=== PATIENT | female | born 1990 | race Caucasian/White ===

== ENCOUNTER 2018-06-13 20:26 | Emergency (ER) | payer BC, SELFPAY ==
[2018-06-13 20:33] VITALS: BP 106/72; PULSE 62; RESP 20; TEMP 36.9; O2SAT 100; BMI 21.6
--- NOTE | 2018-06-13 20:50 | ED_ITS ---
HPI - URI/Sore Throat <QUINN Mccullough - Last Filed: 06/13/18 22:22> General Chief Complaint: Upper Respiratory Symptoms Stated Complaint: chest pain and SOB x3 days, sore throat Time Seen by Provider: 06/13/18 20:39 Source: patient Mode of arrival: ambulatory Limitations: no limitations History of Present Illness HPI Narrative: 27-year-old healthy female that is a nonsmoker here for complaint of having chest pain to the anterior chest area for the last 3 days. She also reports that she has had a cough over the past 3 days as well. She denies any trauma to the chest wall. No nausea or vomiting. She denies any fevers. She denies any stressors or relievers of her pain. She is ambulatory into the emergency room. She has no nausea or vomiting. She denies any other concerns or complaints at this time MD Complaint: cough Related Data Home Medications Medication Instructions Recorded Confirmed VIT 15/IRON CB/FA/DSS 1 PO Q DAY #0 07/18/16 (MYNATAL ADVANCE TABLET) acetaminophen 650 PO PRN PRN #0 07/18/16 Previous Rx's Medication Instructions Recorded ibuprofen 600 mg PO Q6HP PRN #30 tab 12/11/16 oxycodone-acetaminophen 0 tab PO Q4HP PRN #20 02/09/17 Allergies Allergy/AdvReac Type Severity Reaction Status Date / Time No Known Drug Allergies Allergy Verified 06/13/18 20:37 Review of Systems <QUINN Mccullough - Last Filed: 06/13/18 22:22> Constitutional Denies chills, Denies fatigue, Denies fever(s), Denies lethargy and Denies weakness Eyes Denies change in vision, Denies eye discharge, Denies irritation and Denies loss of vision ENT Ears, Nose, Mouth, and Throat: Denies change in voice, Denies neck pain, Denies sore throat and Denies throat swelling Cardiovascular Reports chest pain Respiratory Reports cough and Denies wheezing Gastrointestinal Gastrointestinal: Denies abdominal pain, Denies change in bowel habits, Denies diarrhea, Denies nausea and Denies vomiting Genitourinary Denies hematuria, Denies flank pain, Denies urinary incontinence and Denies urinary urgency Musculoskeletal Denies neck pain Integumentary/Breasts Denies pruritus, Denies erythema, Denies rash and Denies wounds Neurologic Denies confusion, Denies loss of vision and Denies weakness Psychiatric Denies anxiety, Denies confusion, Denies depression, Denies homicidal ideation and Denies suicidal ideation Endocrine Denies fatigue and Denies flushing Hematologic/Lymphatic Denies easy bruising Allergic/Immunologic Denies urticaria, Denies throat swelling and Denies wheezing Exam <QUINN Mccullough - Last Filed: 06/13/18 22:22> Initial Vital Signs Initial Vital Signs: Vital Signs Temperature 98.5 F 06/13/18 20:33 Pulse Rate 62 06/13/18 20:33 Respiratory Rate 20 06/13/18 20:33 Blood Pressure 106/72 06/13/18 20:33 Pulse Oximetry 100 06/13/18 20:33 Const General: cooperative and well developed Nutritional Appearance: well nourished Orientation: alert, awake, oriented x3 and not confused HENMT Mouth: oral mucosae normal and moist mucous membranes Eyes Conjunctivae: conjunctivae normal Sclera: sclerae normal Pupils: PERRL EOM: EOM intact bilaterally Chest Chest: normal inspection of the chest Other: Tenderness on palpation anterior chest Resp Effort & Inspection: normal respiratory effort, able to speak in complete sentences, no respiratory distress and no use of accessory muscles Auscultation: clear to auscultation bilaterally, no rales, no rhonchi and no wheezes Cardio Rate: regular rate Rhythm: regular rhythm Heart Sounds: no click, no gallops, no murmurs and no rubs Pulses: normal peripheral pulses GI Inspection: non-distended Palpation: soft, no hepatosplenomegaly, No guarding, No pulsatile mass and No tender Auscultation: normal bowel sounds Skin General: no rashes or lesions noted, No jaundice and No petechiae Neuro General: alert, oriented x3, gait normal and no focal motor deficits Speech: speech normal <Chito Brito MD - Last Filed: 06/14/18 00:40> Initial Vital Signs Initial Vital Signs: Vital Signs Temperature 98.5 F 06/13/18 20:33 Pulse Rate 62 06/13/18 20:33 Respiratory Rate 20 06/13/18 20:33 Blood Pressure 106/72 06/13/18 20:33 Pulse Oximetry 100 06/13/18 20:33 Course <QUINN Mccullough - Last Filed: 06/13/18 22:22> Orders Ordered: ED Orders 06/13/18 20:40 EKG-12 Lead Stat 06/13/18 20:55 XR chest 1V Stat 06/13/18 21:15 Complete Blood Count AUTO DIFF Stat Comprehensive Metabolic Panel Stat D Dimer Stat Lipase Stat Troponin & CK Cardiac Panel Stat Discontinued Medications Sodium Chloride (Normal Saline 0.9%) 1,000 mls @ 1,000 mls/hr IV BOLUS ONE Stop: 06/13/18 21:54 Last Admin: 06/13/18 21:18 Dose: 1,000 mls/hr Vital Signs - 8 hr 06/13/18 20:33 06/13/18 22:00 06/13/18 22:36 Temperature 98.5 F Pulse Rate 62 72 59 L Respiratory Rate 20 18 17 Blood Pressure 106/72 107/74 Blood Pressure [Right Arm] 114/74 Pulse Oximetry 100 98 97 <Chito Brito MD - Last Filed: 06/14/18 00:40> Orders Ordered: ED Orders 06/13/18 20:40 EKG-12 Lead Stat 06/13/18 20:55 XR chest 1V Stat 06/13/18 21:15 Complete Blood Count AUTO DIFF Stat Comprehensive Metabolic Panel Stat D Dimer Stat Lipase Stat Troponin & CK Cardiac Panel Stat Discontinued Medications Sodium Chloride (Normal Saline 0.9%) 1,000 mls @ 1,000 mls/hr IV BOLUS ONE Stop: 06/13/18 21:54 Last Admin: 06/13/18 21:18 Dose: 1,000 mls/hr Vital Signs - 8 hr 06/13/18 20:33 06/13/18 22:00 06/13/18 22:36 Temperature 98.5 F Pulse Rate 62 72 59 L Respiratory Rate 20 18 17 Blood Pressure 106/72 107/74 Blood Pressure [Right Arm] 114/74 Pulse Oximetry 100 98 97 MDM - URI/Sore Throat <QUINN Mccullough - Last Filed: 06/13/18 22:22> Lab Data Result diagrams: 06/13/18 21:15 06/13/18 21:15 Lab Results 06/13/18 06/13/18 06/13/18 Range/Units 21:15 21:15 21:15 WBC 6.9 (4.5-11.0) X10^3/uL RBC 4.30 (4.0-5.2) X10^6/uL Hgb 13.5 (12.0-16.0) g/dL Hct 39.3 (36-46) % MCV 91.6 (80-100) fL MCH 31.5 (26-34) PG MCHC 34.4 (30-36) % RDW 12.7 (11.6-14.8) % Plt Count 221 (150-400) X10^3/uL Neut % (Auto) 68.1 (50-75) % Lymph % (Auto) 20.2 L (25-40) % [place] % (Auto) 9.1 (3-14) % Eos % (Auto) 1.8 L (2-4) % Baso % (Auto) 0.8 (0-2) % Neut # (Auto) 4700 (7852-4745) /uL D-Dimer 357 H (<230) ng/mL Sodium 144 (137-145) mmol/L Potassium 3.5 (3.4-5.1) mmol/L Chloride 103 (98-107) mmol/L Carbon Dioxide 25 (22-32) mmol/L BUN 13 (7-17) mg/dL Creatinine 0.70 (0.52-1.04) mg/dL Estimated GFR > 60.0 (>60) mL/min BUN/Creatinine Ratio 18.6 (6-22) Glucose 85 (70-100) mg/dL Calcium 9.0 (8.4-10.2) mg/dL Total Bilirubin 0.3 (0.2-1.3) mg/dL AST 36 (14-36) IU/L ALT 24 (9-52) IU/L Alkaline Phosphatase 39 (38-126) U/L Total Creatine Kinase 1388 H (30-135) U/L CK-MB (CK-2) 22.80 H (<2.37) ng/mL CK-MB (CK-2) Rel Index 1.6 (1.5-5.0) % Troponin I < 0.012 (0.01-0.034) ng/mL Total Protein 7.5 (6.3-8.2) g/dL Albumin 4.4 (3.5-5.0) g/dL Globulin 3.1 (1.7-4.1) g/dL Albumin/Globulin Ratio 1.4 (1.0-2.8) Lipase 80 (23-300) U/L Point of Care Testing Test Results Negative Rapid Strep A Negative Urine Dip Bedside Urine Glucose Negative Bedside Urine Bilirubin - Negative Bedside Urine Ketone - Negative Urine Specific [place] 1.015 Bedside Urine Occult Blood - Negative Bedside Urine pH 7.5 Bedside Urine Protein - Negative Bedside Urine Urobilinogen - Negative Bedside Urine Nitrite - Negative Bedside Urine Leukocytes - Negative Esterase Imaging Data Chest x-ray: Radiologist's impression: [address] [id number] XRay Report Signed Patient: Danya Clay FMR#: [id number] : 1990Acct:[id number] Age/Sex: 27 / FDate of Service: 06/13/18 Loc: ED Accession Number: [id number] Procedure: XR chest 1V Ordering Provider: Anival Osborn PROCEDURE: XR CHEST 1V INDICATIONS: Chest pain last 3 days TECHNIQUE: One view of the chest was acquired. COMPARISON: None. FINDINGS: Surgical changes and devices: None. Lungs and pleura: No pleural effusions or pneumothorax. There is mild pulmonary vascular congestion. No definite focal infiltrate. Mediastinum: Mediastinal contours appear normal. Heart size is enlarged. Bones and chest wall: No suspicious bony lesions. Overlying soft tissues appear unremarkable. IMPRESSION: Mild congestion. No focal infiltrate, pleural effusion or pneumothorax. Dictated by: Kyree Child M.D. on 06/13/2018 at 21:45 Approved by: Kyree Child M.D. on 06/13/2018 at 21:45 ECG Data Interpretation: EKG shows normal sinus rhythm with no ST elevation or depression. No ectopy. Ventricular rate of 64. Pr interval 152. QRS duration of 90. QTC of 417. MDM Narrative Medical decision making narrative: chest x-ray was obtained was negative for any acute findings. EKG shows sinus rhythm with no ST elevation or depression. No ectopy. CBC and Chem panel were unremarkable. CK and CK-MB were elevated although CK-MB relative index was normal and troponin was negative. Patient does report that she did go to the gym yesterday. Urinalysis was negative for urinary tract infection and was light yellow colored urinalysis was also negative for . Signs and symptoms presents as costochondritis. Differential whether or not her anxiety is causing chest wall pain. She is to follow up with primary care provider later this week for re-evaluation. Over- the-counter ibuprofen and rest to the area. Gentle range of motion to the chest wall to to help keep muscles loose. For any worsening symptoms return emergency room. <Chito Brito MD - Last Filed: 06/14/18 00:40> Lab Data Lab Results 06/13/18 06/13/18 06/13/18 Range/Units 21:15 21:15 21:15 WBC 6.9 (4.5-11.0) X10^3/uL RBC 4.30 (4.0-5.2) X10^6/uL Hgb 13.5 (12.0-16.0) g/dL Hct 39.3 (36-46) % MCV 91.6 (80-100) fL MCH 31.5 (26-34) PG MCHC 34.4 (30-36) % RDW 12.7 (11.6-14.8) % Plt Count 221 (150-400) X10^3/uL Neut % (Auto) 68.1 (50-75) % Lymph % (Auto) 20.2 L (25-40) % [place] % (Auto) 9.1 (3-14) % Eos % (Auto) 1.8 L (2-4) % Baso % (Auto) 0.8 (0-2) % Neut # (Auto) 4700 (0528-7347) /uL D-Dimer 357 H (<230) ng/mL Sodium 144 (137-145) mmol/L Potassium 3.5 (3.4-5.1) mmol/L Chloride 103 (98-107) mmol/L Carbon Dioxide 25 (22-32) mmol/L BUN 13 (7-17) mg/dL Creatinine 0.70 (0.52-1.04) mg/dL Estimated GFR > 60.0 (>60) mL/min BUN/Creatinine Ratio 18.6 (6-22) Glucose 85 (70-100) mg/dL Calcium 9.0 (8.4-10.2) mg/dL Total Bilirubin 0.3 (0.2-1.3) mg/dL AST 36 (14-36) IU/L ALT 24 (9-52) IU/L Alkaline Phosphatase 39 (38-126) U/L Total Creatine Kinase 1388 H (30-135) U/L CK-MB (CK-2) 22.80 H (<2.37) ng/mL CK-MB (CK-2) Rel Index 1.6 (1.5-5.0) % Troponin I < 0.012 (0.01-0.034) ng/mL Total Protein 7.5 (6.3-8.2) g/dL Albumin 4.4 (3.5-5.0) g/dL Globulin 3.1 (1.7-4.1) g/dL Albumin/Globulin Ratio 1.4 (1.0-2.8) Lipase 80 (23-300) U/L Point of Care Testing Test Results Negative Rapid Strep A Negative Urine Dip Bedside Urine Glucose Negative Bedside Urine Bilirubin - Negative Bedside Urine Ketone - Negative Urine Specific [place] 1.015 Bedside Urine Occult Blood - Negative Bedside Urine pH 7.5 Bedside Urine Protein - Negative Bedside Urine Urobilinogen - Negative Bedside Urine Nitrite - Negative Bedside Urine Leukocytes - Negative Esterase Discharge Plan Departure Patient Disposition: Home Clinical Impression: Acute costochondritis Discharge Date/Time: 06/13/18 22:37 Interventions: ED Discharge Assessment Last Done: 06/13/18 22:36 Instructions: DI for Costochondritis Activity Restrictions/Additional Instructions: Chest x-ray and EKG today were unremarkable. Cardiac markers were negative for signs of heart involvement causing chest pain. Other laboratory results were unremarkable. Chest pain presents as a chest wall pain that is muscular in nature. Rest the area. Gentle range of motion exercises to the chest wall area to help keep muscles loose. Follow up with her primary care provider later this week for re-evaluation. Differential of anxiety causing chest pain as well. For any worsening symptoms return to the emergency room. Prescriptions: No Action VIT 15/IRON CB/FA/DSS (MYNATAL ADVANCE TABLET) 1 PO Q DAY Qty: 0 RF: 0 acetaminophen 325 MG tablet 650 PO PRN PRNQty: 0 RF: 0 ibuprofen 600 MG tablet 600 mg PO Q6HP PRNQty: 30 RF: 0 oxycodone-acetaminophen 5 MG/325 MG tablet PO Q4HP PRNQty: 20 RF: 0 Referrals: Brooke Pierre MD [Primary Care Provider] - <Chito Brito MD - Last Filed: 06/14/18 00:40> Cosign ED Attending Jenny Attestation: I was present in the ER at the time this patient's evaluation. I was available for verbal consultation or to see the patient directly if required. I agree with the assessment and treatment plan.
--- NOTE | 2018-06-13 20:55 | DI.RAD.S_ITS ---
PROCEDURE: XR CHEST 1V INDICATIONS: Chest pain last 3 days TECHNIQUE: One view of the chest was acquired. COMPARISON: None. FINDINGS: Surgical changes and devices: None. Lungs and pleura: No pleural effusions or pneumothorax. There is mild pulmonary vascular congestion. No definite focal infiltrate. Mediastinum: Mediastinal contours appear normal. Heart size is enlarged. Bones and chest wall: No suspicious bony lesions. Overlying soft tissues appear unremarkable. IMPRESSION: Mild congestion. No focal infiltrate, pleural effusion or pneumothorax. Dictated by: Kyree Child M.D. on 06/13/2018 at 21:45 Approved by: Kyree Child M.D. on 06/13/2018 at 21:45
[2018-06-13] MEDS: SODIUM CHLORIDE 0.9% 1,000 ML 1000 ML IV (21:18)
[2018-06-13 21:29] LABS: Add Manual Diff / Slide Review NO; Basophils Percent Auto 0.8 % (0-2); Eosinophils Percent Auto 1.8 % (2-4); Hematocrit 39.3 % (36-46); Hemoglobin 13.5 g/dL (12.0-16.0); Lymphocytes Percent Auto 20.2 % (25-40); Mean Corpuscular HGB Conc 34.4 % (30-36); Mean Corpuscular Hemoglobin 31.5 PG (26-34); Mean Corpuscular Volume 91.6 fL (80-100); Monocytes Percent Auto 9.1 % (3-14); Neutrophils Absolute Auto 4700 /uL (1500-7000); Neutrophils Percent Auto 68.1 % (50-75); Platelet Count 221 X10^3/uL (150-400); Red Cell Distribution Width 12.7 % (11.6-14.8); White Blood Cell Count 6.9 X10^3/uL (4.5-11.0)
[2018-06-13 21:33] LABS: D Dimer 357 ng/mL (<230)
[2018-06-13 21:35] LABS: Alanine Aminotransferase 24 IU/L (9-52); Albumin 4.4 g/dL (3.5-5.0); Albumin Globulin Ratio 1.4 (1.0-2.8); Alkaline Phosphatase 39 U/L (38-126); Aspartate Aminotransferase 36 IU/L (14-36); BUN Creatinine Ratio 18.6 (6-22); Bilirubin Total 0.3 mg/dL (0.2-1.3); Blood Urea Nitrogen 13 mg/dL (7-17); Carbon Dioxide 25 mmol/L (22-32); Chloride 103 mmol/L (98-107); Creatine Kinase 1388 U/L (30-135); Estimated Glomerular Filt Rate > 60.0 mL/min (>60); Globulin 3.1 g/dL (1.7-4.1); Glucose 85 mg/dL (70-100); HEMOLYSIS < 15 (0-50); Lipase 80 U/L (23-300); Potassium 3.5 mmol/L (3.4-5.1); Sodium 144 mmol/L (137-145); Total Protein 7.5 g/dL (6.3-8.2)
[2018-06-13 21:48] LABS: Troponin I < 0.012 ng/mL (0.01-0.034)
[2018-06-13 21:50] LABS: CKMB % Relative Index 1.6 % (1.5-5.0)
[2018-06-13 22:00] VITALS: BP 114/74; PULSE 72; RESP 18; O2SAT 98
[2018-06-13 22:36] VITALS: BP 107/74; PULSE 59; RESP 17; O2SAT 97
== END 2018-06-13 22:37 | disposition home or self-care (01) ==
PROVIDERS: Emergency Provider Nurse Practitioner Family; Family Provider Obstetrics & Gynecology; PCP Obstetrics & Gynecology
DX: M94.0 Chondrocostal junction syndrome [Tietze] (principal)
CPT/HCPCS: 36591; 71045; 80053; 81003; 81025; 82550; 82553; 83690; 84484; 85025; 85379; 87880; 93005; 96360; 99282; 99285